=== PATIENT | male | born 1955 | race Caucasian/White ===

== ENCOUNTER 2024-04-04 08:00 | Outpatient (RCR) | payer MEDICARE, OTHER, SELFPAY ==
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
--- NOTE | 2024-04-04 09:00 | BH.COMM ---
Communication Note Communication with Client Communication Note: Met with pt to complete psychosocial, risk assessment, and initial paperwork. Completed [place] Suicide Screening. Low risk. Consulted with Dr. Almanza with plan to admits to [facility] with dx of f31.97
--- NOTE | 2024-04-04 10:15 | BH.SGPN.GN ---
Behaviors/Verbalizations/Mental Status: [] Eye contact is good. Motor activity is appropriate. Appearance is casual. Speech is Appropriate. Mood is depressed/anxious. Affect is congruent. Thoughts are linear and logical. No evidence of psychosis. Client Response/Progress/Benefit: [] Pt did well to participate in activity and was engaged and attentive during psychoeducation and interactive discussion on coping skills, why people use unhealthy coping skills, how to replace unhealthy coping skills, and internal vs external coping skills. Attentive as peers came up with list of negative coping skills including not asking for help, avoidance, isolating, sleeping, shopping, substance use, and several others. Pt reports he will at times use passive aggressiveness as a coping skill. Recognizes this doesn't help the situation. Group discussed the effects of how negative coping skills can impact mental health in a negative way. Benefited from increased understanding of unhealthy coping skills and the need for developing healthy internal and external coping skills. Will continue in IOP to improve daily functioning, increase healthy coping skills, and prevent decompensation.
--- NOTE | 2024-04-04 11:10 | BH.MDN ---
Multi-Disciplinary Note Note 60-min Individual: Time Started:: 11:10 Date: 04/04/24 Purpose of session/treatment goals addressed:: Met with pt to gather hx, symptoms which led to admission, and began to develop treatment plan goals. Eye Contact:: Intense Motor Activity:: Restless Appearance:: Casual Speech:: Pressured, Tangential (hyper-focused on confucianist and sexual topics) and Rapid Mood:: Anxious Affect:: Full Thoughts:: Linear, Racing, Flight of ideas (mild) and Circular Staff Interventions:: rapport building and completed risk assessment / safety planning Client Response:: Pt reports that he was referred to [facility] by his outpatient therapist due to his mental health impacting his functioning (mainly relationships). Pt states his therapist thinks I have Bipolar 2. Pt recently completed an psychiatric evaluation with an outpatient psychiatrist (Dr. Bianchi at [facility]) which pt reports was not helpful. He was just trying to sell me pills. Pt reports previous medication trails which were not effective. Challenging to follow pt due to racing thoughts, tangential thoughts, and being hyper-focused on confucianist and previous sexual encounters. Able to be re-directed. He is able to identify distinct depressive and hypomanic episodes throughout his life. Currently he admits to starting several projects and not finishing them, racing thoughts, restlessness, and erratic moods. Able to gather history and begin to build rapport. His goals for [facility] are to have someone work the problem with me. He however struggles with identifying the problem except to state that his current behaviors are impacting his marriage. I never understand myself. Risks/Concerns:: Denies active suicidal ideations, plan, or intent. No hx of attempts. Progress Toward Goals/Plan:: Limited progress as this was pt's first day in [facility]. Pt is reluctant to start medications due to previous negative encounters. He reports previous trial of two anti-depressants one of which caused depression/drowsiness and the other resulted in excessive sex drive. Referred to [facility] by his outpatient therapist and his for what appears to be hypomania, erratic mood, racing thoughts and recent depressive episode. Pt has been consistently attending traditional outpatient for a year with limited benefit. Along with mental health impacting his functioning and what presents as long-standing untreated hypomanic/depressive episodes the plan is to admits to [facility] to stablize mood, increase healthy coping, and improve functioning. Time Stopped:: 12:30
--- NOTE | 2024-04-04 15:23 | BH.MTP ---
Master Treatment Plan Patient Information Program Physician:: Domonique Almanza Primary Therapist:: Mihir Flores Psychiatric Diagnoses Psychiatric Diagnoses:: 1. Bipolar 2 disorder (possibly currently hypomanic and coming out of depression) 2. PTSD Diagnosis Code(s):: F31.81 Estimated LOS Estimated LOS (in weeks):: 6 Problem/Goal #1 Problem/Goal #1 Stated Goal:: Client will increase mood stability and reduce depression based on self-report and reduction of scores on the ary domain. Description of Barriers: Mental health stigma, refuses medication intervention, absolute thinking, limited insight on symptoms and how they impact relationships. Functional Impact: Hypomania causing Relationship conflict ( recently asked for a divorce), Limited support, and difficulty staying on task and completing projects. Depressive episodes low energy, panic, rumination, and thoughts of . Reports that he has to tell his to put the guns away. Goal Relevant Strengths/Supports: Engaged. Reports motivation and willingness to learn. Objectives Objective #1: Stated Objective: Client will increase self-awareness of Bipolar 2 and Hypomania (i.e. criteria/symptoms, impact on relationship/functioning). Will also identify 2-3 warning signs and triggers to both hypomania and depressive episodes Interventions: Through individual and group work client will identify triggers and warning signs for hypomanic and depressive episodes. Therapist will provide psychoeducation on bipolar disorder and use CBT strategies to increase client?s awareness of how thoughts, feelings, and behaviors impact functioning. Discharge Criteria: Will be able to identify criteria associated with Bipolar 2 and hypomania as well as 2-3 warning signs that he is experiencing a hypomanic or depressive episode. Target Date: 05/16/24 Review Date: 04/25/24 Objective #2: Stated Objective: Client will identify and replace 2-3 negative thinking patterns/mistaken beliefs that reinforce depressive symptoms, self-hate, unhealthy ruminations, and negative self-talk Interventions: Through individual and group counseling will help client identify distorted, negative beliefs about self and replace with more realistic, affirmative messages. Therapist will use CBT to help client increase insight to the connection between thoughts, emotions, and behaviors. Therapist will encourage client to practice thought challenging. Discharge Criteria: Able to identify 2-3 negative thinking patterns and/or mistaken beleifs which impact thoughts, emotions, and actions. Target Date: 05/16/24 Review Date: 04/25/24 Problem/Goal #2 Problem/Goal #2 Stated Goal:: Stabilize anxiety level while increasing ability to function on a daily basis AEB self-report and decreased scores on the anxiety domain. Description of Barriers: Mental health stigma, refuses medication intervention, absolute thinking, limited insight on symptoms and how they impact relationships. Functional Impact: Anxiety, ruminations, and hyper-focus often result in struggles with communicating effectively, anger mgmt, relationships, and panic attacks. Goal Relevant Strengths/Supports: Engaged. Reports motivation and willingness to learn. Objectives Objective #2: Stated Objective: Client will identify 2-3 cognitive distortions that lead to rumination, panic, anger, and ineffective communication. Learn 2-3 ways to manage these thoughts to better manage anxiety as shown by reduced DSM-5 scores for anxiety Interventions: Through individual and group counseling will teach the client calming/relaxation skills (e.g., muscle relaxation, mindful breathing) and provide education on the most common cognitive distortions and teach client the connection between thoughts, emotions, and feelings Discharge Criteria: Able to identify commonly used cognitive distortions and 2-3 ways to reframe challenge these distortions. Target Date: 05/16/24 Review Date: 04/25/24
--- NOTE | 2024-04-06 09:00 | BH.SGPN.GN ---
Behaviors/Verbalizations/Mental Status: [] Eye contact good. Motor activity appropriate. Speech within normal limits. Affect congruent, mood euthymic. Thoughts linear, logical, no signs of hallucinations or delusions. Reviewed client?s symptom tracker, denies SI, plan, or intent as of 04/06/2024. Client Response/Progress/Benefit: [] Client receptive of session, attentive and willing to process with group. Reports mental health win as successfully managing his emotions and not becoming unnecessarily agitated by bad drivers on his way to group this morning. Identified positive self-talk and gratitude practices as aiding in maintaining mood stability. Additional win noted as sleeping well last night despite recently struggling with staying asleep. Current stressor noted as knowing what to do with his time by the mid-afternoon now that he is retired. Discussed trying to get more into reading and other hobbies which have been helpful distractions. Receptive of and appearing to benefit from group support and feedback. Recommended continued IOP tx to further improve mood stability, promote consistent skill application, well as prevent decompensation. Narrative Note: []
--- NOTE | 2024-04-06 10:50 | BH.NA_ITS ---
Physical Data Vital Signs Pulse Rate: 51 Blood Pressure: 136/83 Height/Weight Height: 1.79 m Weight:: 74.389 kg Weight in Pounds: 164.0 lbs Current Medication Compliance Medication Compliance Do you take your medication as prescribed?: Yes Nutritional History Appetite Nutritional Instructions: Describe your appetite:: Good Additional nutritional information:: Client states he has lost about 30 lbs in the last 10 months intentionally. Functional Assessment Sleep Pattern Describe any problems with sleeping: Client states he sleeps about 6 hours per night, and states he easily can fall asleep in the afternoon due to his myotonic muscular dystrophy recessive trait. Sensory/Communication Assess Vision Problems Do you have any vision problems?: Glasses Medical Problems/History Cardiac Conditions Cardiovascular: Hypertension Neurological Conditions Neurological: Headaches Gastrointestinal Conditions Gastrointestinal: Other (See comments) (history of Barretts esophagus, GERD) Musculoskeletal Conditions Musculoskeletal: Other (See comments) (has recessive mytonic muscular dystrophy gene and states he has some small traits but does not have diagnosis of actual disorder) Surgical History Surgical History Have you had any surgeries? If so, list type and date:: Yes (hernia, cataracts and retinal reattachment) Substance Abuse Substance Abuse Please describe substance abuse in the last 30 days:: Client states he used alcohol and marijuana heavily during his teenage and early adult years and states he completely stopped using in 1976. Client has a history of cigarette use but not current, stating he quit in 1979 after smoking 2-3 ppd for about 8 years. Client states he drinks about 2 cups of coffee per day. Mental Status Summary Mental Status Significant Findings/Observations on Appearance and Mood:: Client is alert and oriented x 4. Client is casually groomed. Client is cooperative with assessment. Client makes good eye contact. Client's voice has normal rate and volume, and client talks off subject at times at length. Client has a full affect. Client makes logical associations. Client denies delusions/hallucinations. Client denies SI. Suicide Assessment Suicidal Ideation Are you currently or have you been suicidal in the past?: Yes Suicidal Intentional Rating Scale (SIRS): Suicidal thoughts (past) Physician Notification Past Psychiatric History MH Treatment Hx Past Psychiatric Medications:: Client states he took Stelazine around age 16 a couple of times, took Paxil for 14 months and took Effexor for 20 months several years ago and has not taken medicaiton for mental health at all in about 24 years. Age of first mental health symptoms: Client states he had anxiety as a kid, and took a few doses of Stelazine as a teenager for anxiety. Describe (age, circumstance, etc) any past hospitalizations: 1996 at [facility] after a panic attack. Client reports that he attempted to hang himself at age 4, and at age 17 stepped out infront of a car as a suicide attempt Current providers for mental health treatment (counselor, psychiatrist, renal case manager, etc.): Chad Merino for counseling, saw Dr. Bianchi once at [facility] for psychiatry Fall Risk Assessment Age Age: 60-70 Mental Status Mental Status: Willing & able to ask for assistance when needed Physical Status Physical Status: No problems Impairments Impairments: None Elimination Elimination: Continent AND independent Gait or Balance Gait or Balance: Walks independently Hx of Falls History of falls in the past 6 months: No known history Medications/Substances Others:: Antihypertensives Medications/substances used within the past 24 hours or ordered to administer: 1-2 of the medications/substances listed above Total Score Total Points:: 2 RN Summary of Impressions Impressions Recommendations Impressions: Psychiatric Issues: 1. Bipolar 2 disorder (possibly currently hypomanic and coming out of depression) 2. PTSD Level of Care How do the client's current symptoms and functional deficits support need for this level of care?: Client was referred to IOP by outpatient therapist, client states He thinks I have bipolar disorder. Client states over his life, he feels like he works really hard at something for a long time and then has a period of being depressed. Client states over the last few years since [facility], he has been working at being a homesteader and providing stuff for himself (states he took money out of the bank and has it in different places in case the bank system fails, stashing away food, etc) and states he has been feeling depressed for the last several weeks after working on that for so long. Client states that his behavior is driving everyone around me crazy. Client does report decreased energy at this time. Client denies SI when asked. Client talks at length about his islam and how it has changed his life. Client reports stressors at home since he is retired and my is stuck with me all day without a break. IOP will promote gains and prevent further decompensation while providing social support and skills training.
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
--- NOTE | 2024-04-06 12:28 | BH.DR.ITP ---
Initial Treatment Plan Patient Information Visit Information: ADMISSION DATE: EXPECTED LOS: 4-6 weeks Problems/Symptoms Problem #1:: Mood instability Symptom:: Sadness, mild grandiosity, guilt, passive thoughts of , worthlessness, hopelessness Symptom:: Occasional moods consistent with hypomania Problem #2:: Anxiety Symptom:: Worry, rumination
[2024-04-06 14:26] VITALS: BP 136/83; PULSE 51
--- NOTE | 2024-04-08 09:00 | BH.SGPN.GN ---
Behaviors/Verbalizations/Mental Status: []Eye contact is good. Motor activity is appropriate. Appearance is casual. Speech is Appropriate. Mood is euthymic. Affect is congruent. Thoughts are linear and logical. No evidence of psychosis. Reviewed daily check in sheet and no reports of suicidal ideations or intent. Client Response/Progress/Benefit: []Pt responded well to session, attentive and engaged. Pt reports feeling smooth this morning. Pt identified mental health wins today which included admitting to himself that he has contributed to the problem in his marriage and pt feels that he had good time management yesterday. Pt's stressor this morning is that one of his life-long friends had to make changes to their standing breakfast plans. Pt expressed how this triggered rejection and all or nothing thoughts of wanting to end the friendship. Pt somewhat receptive to per feedback on how to communicate with his friend and challenge his own thoughts. Pt appeared to benefit from reflecting on use of coping skills and connecting with peers. Pt will continue IOP tx to prevent decompensation, improve daily functioning, and increase distress tolerance skills. Narrative Note: []
--- NOTE | 2024-04-08 10:15 | BH.SGPN.GN ---
Behaviors/Verbalizations/Mental Status: [] Eye contact is good. Motor activity is appropriate. Appearance is casual. Speech is Appropriate. Mood is euthymic. Affect is full. Thoughts are linear and logical. No evidence of psychosis. Client Response/Progress/Benefit: [] Pt was engaged and an active participant throughout, providing input and taking notes. Participated throughout interactive discussion on defining anxiety and identifying cognitive and physiological symptoms of anxiety. Group discussed the role of anxiety on isolation, avoidance, and who this emotion impacts their ability to start and complete activities/goals. Pt identified their physical/physiological signs of anxiety (i.e. nausea, increased heart rate, butterflies, and headaches). Pt identified safety behaviors (i,e isolation, cancel plans, and reassurance seeking). Benefited from increased awareness and insight on anxiety and its impact. Will continue in IOP to prevent decompensation, stablize mood, and increase healthy coping/persepctives. Narrative Note: []
--- NOTE | 2024-04-08 11:15 | BH.SGPN.GN ---
Behaviors/Verbalizations/Mental Status: []Pt alert and oriented, casually dressed and groomed. Eye contact good. Motor activity appropriate. Speech within normal limits. Affect congruent, mood euthymic. Thoughts linear, logical, no signs of hallucinations or delusions. Client Response/Progress/Benefit: []Pt was an active participant AEB pt providing input and listening attentively to peers. Attentive during psychoeducation on mindfulness coping skills and their impact on reducing anxiety and improving overall mental health wellness. Group was able to identify self-soothing and mind-based coping skills which included: 5-senses, meditation, deep breathing, TIPP, thought challenging, and progressive muscle relaxation. Pt also participated with peers in practicing mindfulness skills in session including deep breathing and PMR. Pt would like to work on using music to manage anxiety. Appeared to benefit from increasing repertoire of anxiety reduction skills. Pt will continue in IOP tx to increase healthy coping skills, challenge distorted/negative thoughts, and prevent decompensation.
--- NOTE | 2024-04-12 09:05 | BH.SGPN.GN ---
Behaviors/Verbalizations/Mental Status: [] Eye contact is good. Motor activity is appropriate. Appearance is casual. Speech is pressured, rambling at times. Mood is euthymic. Affect is full. Thoughts are linear and logical. No evidence of psychosis. Reviewed daily check in sheet and no reports of suicidal ideations or intent. Client Response/Progress/Benefit: [] Pt was an active participant in group discussions. Provided feedback on short video on Empathy vs Sympathy. Shared with the group increased awareness and empathy regarding recent upsetting event for his . This led to appropriate communication rather than avoidance or dismissal of her concerns. As a result it made things better. Admits that he struggles with effective communication with his which has often led to conflict and ongoing relationship stress. According to pt he thrives on connection with others using examples of previous conversations. Identifies with being an extrovert. Highlighted the importance of improving relationship with his to increase connection. Progress noted. Benefited from group support, encouragement, and feedback. Will continue in IOP to stabilize mood, increase healthy coping, and improve functioning. Narrative Note: []
--- NOTE | 2024-04-12 10:15 | BH.SGPN.GN ---
Behaviors/Verbalizations/Mental Status: []Eye contact is good. Motor activity is appropriate. Appearance is casual. Speech is Appropriate. Mood is content. Affect is congruent. Thoughts are linear and logical. No evidence of psychosis. Client Response/Progress/Benefit: [] Attentive and engaged throughout the group discussions, at times struggling with dominating conversation. Attentive during psychoeducation on the 4 communication styles (Passive, Passive-Aggressive, Aggressive, and Assertive) and the obstacles to effective communication. Attentive during interactive discussion on the benefits of communicating effectively, as well as the benefits and disadvantages to the different communication styles. Reports connecting most with the assertive style, though appears to struggle with insight into his own use of aggressive communication even in the group setting. Shared struggling at times with making assumptions when communicating with his . Benefited from increased understanding of communication styles and how these can impact effective communication. Will continue in IOP to increase interpersonal effectiveness skills, improve mood stability, and prevent decompensation. Narrative Note: []
--- NOTE | 2024-04-12 11:10 | BH.SGPN.GN ---
Behaviors/Verbalizations/Mental Status: []Pt alert and oriented, casually dressed. Eye contact fair. Motor activity appropriate. Speech within normal limits. Affect congruent, mood euthymic. Thoughts linear, logical, no signs of hallucinations or delusions. Client Response/Progress/Benefit: [] Pt responded well to session AEB Pt listening attentively to others and providing input during group discussion on the pay offs and costs of the different communication styles. Pt able to connect how current communication style impacts mental health. Connected with peers? comments about importance of using assertive communication. Pt did well with practicing being assertive in the group activity and worked with group to identify potential skills for improving communication skills. Pt seemed to benefit from increasing awareness of healthy strategies to improve communication. Will continue IOP tx to prevent decompensation, increase consistent use of healthy coping skills, and challenge negative thoughts.
--- NOTE | 2024-04-12 12:10 | BH.MDN_ITS ---
Multi-Disciplinary Note Note 60-min Individual: Time Started:: 12:10 Date: 04/12/24 Purpose of session/treatment goals addressed:: Treatment planning and goal setting. Eye Contact:: Intense Motor Activity:: Appropriate Appearance:: Casual Speech:: Pressured, Rambling and Rapid Mood:: Euthymic Affect:: Full Thoughts:: Linear, Logical and No evidence of hallucinations/delusions noted Staff Interventions:: thought challenging, psychoeducation on: (cognitive distortions; ), rapport building and treatment planning Client Response:: Pt states that IOP treatment is going ok. Reports benefits from groups and discussions on topics related to mental health. When asked about his goals for treatment he became focused on marriage conflicts. States that he is unhappy and its not fun. Brings up several struggles with communication and intimacy which have not resolved despite marriage counseling. He is committed to stay with her mainly for financial and evangelical reasons. He believes that his issues with women are the result of his childhood noting that his parents had an unhealthy relationship which was distant. A great deal of his anxiety, stress, depression, and irritabilty are related to his struggles with communication and connection with others. Risks/Concerns:: Denies active SI, plan, or intent. Progress Toward Goals/Plan:: Limited progress. Pt refused medication suggestions form program psychiatrist. Speech continues to be rapid/pressured and he struggles with rambling (going off topic). Also remains hyper focused on sex which he discussed in detail at the beginning of the session. Often over- engages in group and struggles to listen. Impulsive and can be borderline inappropriate with information discussed, however this has improved with redirection from staff. After speaking with pt it is becoming evident that he has a great deal of cognitive distortions which are impacting his thinking, emotions and behaviors. Significant absolute thinking and overgeneralization. He was responsive to education on cognitive distortions and was given task to review list of distortions and identify ones that he uses the most. Will continue in IOP to stabilize mood, increase healthy coping, and prevent decompensation. Will encourage reconsideration of medication through increased education on Bipolar 2. Time Stopped:: 01:00
--- NOTE | 2024-04-13 09:00 | BH.SGPN.GN ---
Behaviors/Verbalizations/Mental Status: [] Client alert and oriented, casual appearance. Eye contact good. Motor activity appropriate. Speech within normal limits. Affect congruent, mood sad. Thoughts linear, logical, no signs of hallucinations or delusions. Reviewed client's symptom tracker, no risk for suicidal ideation, plan, or intent. Client Response/Progress/Benefit: [] Client responded well to session AEB listening to others and sharing thoughts/feelings. client stated current stressor is watching his 's physical health decline. Client became tearful when talking about watching his 's physical health deteriorated. Client stated mental positive as exercising yesterday even though he did not do anything. Client stated additional mental positive was being frustrated with the car during his commute to IOP today but was able to use breathing skills to bring himself back down so he did not respond in a negative way. Appeared to benefit from support from peers. Will continue IOP tx to continue use of healthy coping skills, challenge distortions, and prevent decompensation. Narrative Note: []
--- NOTE | 2024-04-13 10:10 | BH.SGPN.GN ---
Behaviors/Verbalizations/Mental Status: []Pt alert and oriented, casually dressed and groomed. Eye contact good. Motor activity appropriate. Speech within normal limits. Affect congruent, mood calm. Thoughts linear, logical, no signs of hallucinations or delusions. Client Response/Progress/Benefit: []Pt was attentive during psychoeducation and participated in group activity. Group discussed what contributes to a person?s perspective and how perspective can positively or negatively impact mental health treatment. Pt reflected on their perspective today and how it is impacting them. Pt shared their perspective today is ?hopeful and optimistic? and pt feels this will help him continue to learn while in IOP. Pt appeared to benefit from increasing awareness of different perspectives and how they can affect mental health. Pt will continue IOP tx to promote mood stability, increase self-awareness, and improve daily functioning. Narrative Note: []
--- NOTE | 2024-04-13 11:10 | BH.SGPN.GN ---
Behaviors/Verbalizations/Mental Status: []Pt alert and oriented, casually dressed and groomed. Eye contact good. Motor activity appropriate. Speech within normal limits. Affect congruent, mood content. Thoughts linear, logical, no signs of hallucinations or delusions. Client Response/Progress/Benefit: []Pt was attentive and contributed to group discussion. Pt worked with group to identify strategies that can help with challenging negative perspective. Pt completed strengths exploration worksheet, identifying love of learning, curiosity, and spirituality as personal strengths. Pt able to acknowledge how these strengths are helping pt and can continue to help pt in mental health journey. Pt identified wanting to work on leaning on strength of love of learning to learn more about perspectives he does not understand. Benefited from identifying personal strengths and strategies for enhancing use of identified strengths. Pt will continue IOP tx to maintain mood stability, encourage consistent skill application and prevent decompensation. Narrative Note: []
--- NOTE | 2024-04-14 09:00 | BH.SGPN.GN ---
Behaviors/Verbalizations/Mental Status: [] Pt alert and oriented, neatly dressed and groomed. Eye contact good. Motor activity appropriate. Speech within normal limits. Affect constricted, mood euthymic. Thoughts linear, logical, no signs of hallucinations or delusions. Reviewed pt?s symptom tracker, no risk for suicidal ideation, plan, or intent 04/14/24 Client Response/Progress/Benefit: []Pt responded well to session, attentive and engaged. Pt reports feeling optimistic this morning. Pt shared he was productive last night and he did not have any disputes with his . Pt shared he has noticed he gets tired more often and he wants to sleep when he feels overwhelmed. Pt wondered why this happens and group shared it could be a fight, flight, or freeze response to stress which pt found helpful. Pt appeared to benefit from identifying positives and connecting with peers. Pt will continue IOP tx to prevent decompensation, gain healthy coping skills, and improve daily functioning. Narrative Note: []
--- NOTE | 2024-04-14 10:15 | BH.SGPN.GN ---
Behaviors/Verbalizations/Mental Status: []Client alert and oriented, casually dressed and groomed. Eye contact good. Motor activity appropriate. Speech within normal limits. Affect congruent, mood slight agitation and content. Thoughts linear, logical, no signs of hallucinations or delusions. Client Response/Progress/Benefit: []Pt was an attentive an active participant, AEB taking notes and providing input in group discussion when prompted. Attentive during psychoeducation. Pt engaged during interactive discussion in which the group defined self-care and discussed its benefits. Group discussed barriers to engaging in self-care. Group members together came up with guilt, time, ?people pleasing?, not knowing what to do, and perception that its unproductive as barriers to engage in self care. Pt stated their personal barrier is not enough time/other things are more important. Pt participated in small groups where they worked to identified and challenged common self-care ?myths?. Benefited from increased awareness of self-care, its benefits, and the consequences of not utilizing self-care strategies. Will continue IOP tx to continue to improve functioning, increase interpersonal effectiveness skills, and prevent decompensation. Narrative Note: []
--- NOTE | 2024-04-14 11:15 | BH.SGPN.GN ---
Behaviors/Verbalizations/Mental Status: [] Client alert and oriented, casually dressed and groomed. Eye contact good. Motor activity appropriate. Speech within normal limits. Affect congruent, mood content, agitated. Thoughts linear, logical, no signs of hallucinations or delusions. Client Response/Progress/Benefit: []Client engaged in discussion reviewing different areas of self-care and completing self-assessment of current self care, as well as providing input throughout discussion. Did appear more agitated when asked to assess himself and complete the worksheet as pt appears to prefer dialogue to worksheet activities. Client however completed worksheet identifying current self-care practices and what self-care activities client wants to start using. Client selected emotional self-care to begin practicing more consistently. Client plans to do this by continuing to challenge himself to attend IOP treatment and open up more to individual therapist as well as challenge his perspective. Appeared to benefit from completing the self-care evaluation and gaining insights into current self-care practices, as well as identifying areas in which client would like to improve upon. Client will continue IOP tx to prevent decompensation and increase social awareness and improve mood stability. Narrative Note: []
== END 2024-04-16 23:59 ==
LOC: BHIOP 08:00
PROVIDERS: Referring Provider Psychiatry & Neurology Psychiatry; Visit Provider Psychiatry & Neurology Psychiatry
DX: F31.81 Bipolar II disorder (principal); F43.10 Post-traumatic stress disorder, unspecified
CPT/HCPCS: S9480; 90837; 90853

== ENCOUNTER 2024-04-19 07:10 | Outpatient (RCR) | payer MEDICARE, OTHER, SELFPAY ==
[2024-04-17 00:56] VITALS: BP 136/83; PULSE 51
--- NOTE | 2024-04-19 09:00 | BH.SGPN.GN ---
Behaviors/Verbalizations/Mental Status: [] Eye contact is good. Motor activity is appropriate. Appearance is casual. Speech is Appropriate. Mood is anxious/irritable. Affect is congruent. Thoughts are linear and logical. No evidence of psychosis. Reviewed daily check in sheet and no reports of suicidal ideations or intent. Client Response/Progress/Benefit: [] Pt was an active participant in group discussions. Attentive. Pt reports first ?tranquil? days in several months. He spent time with his brother who was in town for the weekend. First time he has seen his brother in 5 years. Tearful at times. According to pt communication continues to be a struggle for him noting that his called him and ?asshole? out of nowhere. Little insight into what triggered her anger stating he was ?just talking?. He admits to getting angry however awareness that engaging with while she is angry is not beneficial. Utilized healthy coping as he left the room and performed mindfulness skills. According to pt this worked as later apologized. Progress noted as he is utilizing skills.. Benefited from group support, encouragement, and feedback. Will continue in IOP to prevent decompensation, stabilize mood, improve communication, and increase healthy skills. Narrative Note: []
--- NOTE | 2024-04-19 10:15 | BH.SGPN.GN ---
Behaviors/Verbalizations/Mental Status: []Pt alert and oriented, casually dressed and groomed. Eye contact good. Motor activity appropriate. Speech within normal limits. Affect congruent, mood content. Thoughts linear, logical, no signs of hallucinations or delusions. Client Response/Progress/Benefit: []Pt an active participant throughout. Participated during interactive discussion on defining conflict (internal/external) and possible benefits to conflict. Attentive during psychoeducation on conflict styles and engaged during group discussion in which peers identified the benefits and consequences to each conflict style. Pt identified they often struggle with avoiding conflict when it has to do with him as he fears this will reinforce negative thoughts that there is something wrong with me. Benefited from increased awareness of the impact of conflict styles in mental health. Will continue in IOP tx to reinforce healthy coping skills, improve mood stability, and prevent decompensation. Narrative Note: []
--- NOTE | 2024-04-19 11:15 | BH.SGPN.GN ---
Behaviors/Verbalizations/Mental Status: []Eye contact is good. Motor activity is appropriate. Appearance is casual. Speech is tangential. Mood is content. Affect is constricted. Thoughts are linear and logical. No evidence of psychosis. Client Response/Progress/Benefit: [] Pt was engaged in group discussions and activity. Engaged with peers in activity and identifying healthy ways to approach each conflict scenario. Group discussed various conflict resolution skills that can be useful in addressing conflict outside of IOP. Benefited from practicing and learning conflict resolution skills during group activity. Able to identify areas pt wants to work on to improve how pt manages conflict both internally and externally. Expressed wanting to work on expressing his needs more with his as pt feels he avoids and accommodates most with her. Will continue in IOP tx to gain interpersonal effective skills and increase self-awareness. ? Narrative Note: []
--- NOTE | 2024-04-21 09:05 | BH.SGPN.GN ---
Behaviors/Verbalizations/Mental Status: [] Eye contact is fair. Motor activity is appropriate. Appearance is casual. Speech is Appropriate. Mood is depressed. Affect is congruent. Thoughts are linear and logical. No evidence of psychosis. Reviewed daily check in sheet and no reports of suicidal ideations or intent. Client Response/Progress/Benefit: [] Pt was an active participant in group discussions. Attentive. Tearful at times. He discussed his son's recent medical issues which have resulted in son needing a pacemaker. He shared that his son is more than likely going to soon. Elaborated that those with son's illness typically don't live to certain age, which he son is close. While there is no acute concern as son is under care of aerial crop duster pt appears to be preparing himself for the possibility that his son will soon. Despite this as well as other stressors pt reports his mood is calm which is incongruent with his check in. He does believe that his communication with is improving. Benefited from group support, encouragement, and feedback. Will contine in IOP to stabilize mood, increase healthy coping, and to improve functioning. Narrative Note: []
--- NOTE | 2024-04-21 10:00 | BH.SGPN.GN ---
Behaviors/Verbalizations/Mental Status: []Pt alert and oriented, neatly dressed and groomed. Eye contact good. Motor activity appropriate. Speech within normal limits. Affect congruent, mood euthymic. Thoughts linear, logical, no signs of hallucinations or delusions Client Response/Progress/Benefit: [] Pt was an active participate AEB listening attentively to others, participating in group discussions, and taking notes throughout. Participated as the group identified ways we can hurt others or sabotage self by not regulating our emotions. Participated with peers to identified ways emotions impact communication. Pt stated in the past he has used his anger as a way to get what he wants, which he recognizes isn't the healthiest thing to do. Participated during group activity. Pt benefited from session by gaining an increased understanding on the importance of managing emotions to improve daily functioning. Will continue IOP tx to improve distress tolerance, increase awareness, and prevent decompensation.
--- NOTE | 2024-04-21 11:15 | BH.SGPN.GN ---
Behaviors/Verbalizations/Mental Status: []Pt alert and oriented, casually dressed and fairly groomed. Eye contact good. Motor activity appropriate. Speech within normal limits. Affect congruent, mood euthymic. Thoughts linear, logical, no signs of hallucinations or delusions. Client Response/Progress/Benefit: [] Pt engaged in session AEB Pt listening attentively to peers and providing input. Attentive during psychoeducation on 4 zones of regulation. Pt able to identify feelings and behaviors for each zone. Pt identified coping skills one can use to support self in each zone. Identified being in the green zone today and he wants to continue focusing on his marriage and exercise to keep him in this zone. ?Benefited from increased education on zones of regulation or stages of alertness for emotions and healthy coping skills to use for each zone. Will continue IOP tx to promote mood stability, increase interpersonal effectiveness skills, and improve daily functioning. Narrative Note: []
--- NOTE | 2024-04-21 12:10 | BH.MDN_ITS ---
Multi-Disciplinary Note Note 60-min Individual: Time Started:: 12:10 Date: 04/21/24 Purpose of session/treatment goals addressed:: Utilized the session to review current symptoms and progress. Addressed tretment plan goal 1; obj1 and goal2; obj2 Eye Contact:: Good Motor Activity:: Appropriate Appearance:: Casual Speech:: Appropriate Mood:: Anxious and Irritable Affect:: Congruent Thoughts:: Linear, Logical and No evidence of hallucinations/delusions noted Staff Interventions:: thought challenging, psychoeducation on: (Poor communication skills; cognitive distortions, thought log), CBT techniques and rapport building Client Response:: Pt briefly discussed recent stressors surrounding his son. According to pt his son more than likely will need a pacemaker. Long- standing medical complications which are impacting his heart. Pt shared that individuals with his condition rarely live past 45 and his son is close to that each. Tearful at times. We processed this briefly however pt clearly feels uncomfortable discussing this and being vulnerable. Majority of the session was reviewing list of poor communication skills (i.e. lacking empathy, interrupting others, not listening, giving advice, etc). Pt has noted on several occasions his struggles with communicating with and connecting with other. He believes that he often completes a majority of the poor communication skills. Insight how this impacts his connection with others which he craves. Encouraged to be cognizant and practice skills especially actively listening and not providing advice. Therapist provided handout on Bipolar with common symptoms and criteria. Briefly discussed and pt agreed to read. Reviewed previous assignment given at last session. Pt able to identify absolute thinking, jumping to conclusion, and overgeneralizing as main cognitive distortions. Insight on how these can impact his mood, communication, and relationships. Risks/Concerns:: Denies active SI, plan, or intent. No risks or concerns noted. Progress Toward Goals/Plan:: Progress noted per pt report. Skills learned in IOP have improved communication with . Notes decreased arguments and increased time spent together. Insight into difficulty with appropriate communication which has been observed in group settings. Open to addressing this and continuing to improve appropriate communication. Lack on connection, negative self-image, and loneliness appear related to his struggles with communication which are also the result of hypomania/depressive episodes. He remains unwilling to start any medications so focus has been on awareness, insight, and challenging current perspectives. Will continue in IOP to stabilize mood, increase healthy coping, and improve functioning. Time Stopped:: 01:00
--- NOTE | 2024-04-25 09:00 | BH.SGPN.GN ---
Behaviors/Verbalizations/Mental Status: [] Pt alert and oriented, neatly dressed and groomed. Eye contact good. Motor activity appropriate. Speech within normal limits. Affect flat, mood anxious and depressed. Thoughts linear, logical, no signs of hallucinations or delusions. Reviewed pt?s symptom tracker, no risk for suicidal ideation, plan, or intent 04/25/24 Client Response/Progress/Benefit: []Pt responded well to session, attentive and engaged. Pt reports feeling weary this morning as pt is worried about his son's health which triggers anxiety and ruminations. Pt stated he is trying to use positive self-talk and the coping skills he is learning while at IOP. Peers also gave pt ideas on how to cope. Pt appeared to benefit from reflecting on application of coping skills and connecting with peers. Pt will continue IOP tx to prevent decompensation, improve daily functioning, and increase distress tolerance skills. Narrative Note: []
--- NOTE | 2024-04-25 10:15 | BH.SGPN.GN ---
Behaviors/Verbalizations/Mental Status: [] Eye contact is good. Motor activity is appropriate. Appearance is casual. Speech is Appropriate. Mood is content. Affect is congruent. Thoughts are linear and logical. No evidence of psychosis. Client Response/Progress/Benefit: [] Pt receptive of session, actively engaged throughout AEB taking notes, providing input, and contributing in small group discussion. Appeared to connect with group topic of automatic thoughts and cognitive distortions, as well as the impact of thought patterns on mental health, coping behaviors, and relationships. This particular group is very heavy on psychoeducation and pt appeared to connect with distortions and how they can impact functioning. Identified struggling with over generalization and mind reading distortions. Pt appeared to benefit from gaining insight on distorted thinking patterns and how this impacts overall mental health. Will continue IOP to stabilize mood, improve ability to function, and prevent decompensation. Narrative Note: []
--- NOTE | 2024-04-25 11:15 | BH.SGPN.GN ---
Behaviors/Verbalizations/Mental Status: []Pt alert and oriented, casually dressed and groomed. Eye contact good. Motor activity appropriate. Speech within normal limits. Affect congruent, mood euthymic. Thoughts linear, logical, no signs of hallucinations or delusions Client Response/Progress/Benefit: [] Pt was an active participant during group discussion. Pt was placed in a smaller group and participated in combatting example distortions with peers. Pt was engaged in the smaller group, participated in group interactions to brainstorm answers, and appeared to be comprehending cognitive distortions. Pt stated could connect with many of the distortions covered in group. Pt stated he has learned from group today it's important to ask more questions instead of making assumptions. Benefited from gaining further insight and awareness of cognitive distortions as well as practicing ways to reframe and challenge thoughts. Will continue in IOP tx to challenge distortions, improve distress tolerance, and prevent decompensation.
--- NOTE | 2024-04-26 09:05 | BH.SGPN.GN ---
Behaviors/Verbalizations/Mental Status: [] Eye contact is good. Motor activity is appropriate. Appearance is casual. Speech is Appropriate. Mood is depressed. Affect is congruent. Thoughts are linear and logical. No evidence of psychosis. Reviewed daily check in sheet and no reports of suicidal ideations or intent. Client Response/Progress/Benefit: [] Pt was an active participant in group discussions. Attentive. Daily symptom tracker notes no significant distress yet pt is tearful and reports irritability. Tearful at times. Recent grief reactions related to his son?s medical condition has also resulted in pt contemplating the health of his brothers. Since he is the youngest he believes that he is going to have to watch all his brothers before him. He quickly changes the subject to an event last night in which his was critical of him. He was able to utilize mindfulness and self-care to focus on the present rather than ruminating, mind-read, or catastrophize which was beneficial. Reports low energy this morning. Benefited from group support, encouragement, and feedback. Will continue in IOP to prevent decompensation, increase healthy coping, and improved functioning Narrative Note: []
--- NOTE | 2024-04-26 10:10 | BH.SGPN.GN ---
Behaviors/Verbalizations/Mental Status: []Client alert and oriented, casually dressed and groomed. Eye contact good. Motor activity appropriate. Speech within normal limits. Affect constricted, mood anxious. Thoughts linear, logical, no signs of hallucinations or delusions. Client Response/Progress/Benefit: [] Pt responded well to session AEB actively participating throughout group. Pt was attentive throughout group activity discussing famous individuals and how they overcame failure to be successful. Pt helped group identify how fear of failure can impact mental health and relationships. Pt personally identified it leads shame and negative self-talk. participated in experiential activity, working with group members to problem solve. Appeared to benefit from increased knowledge of what causes fear of failure and how it impacts people. Will continue IOP tx to promote use of healthy coping skills and improve interpersonal effectiveness. Narrative Note: []
--- NOTE | 2024-04-26 11:10 | BH.SGPN.GN ---
Behaviors/Verbalizations/Mental Status: [] Client alert and oriented, casually dressed and groomed. Eye contact good. Motor activity appropriate. Speech within normal limits. Affect congruent, mood content. Thoughts linear, logical, no signs of hallucinations or delusions. Client Response/Progress/Benefit: [] Client responded well to session, engaged in the experiential activity and attentive throughout group processing. Client reported fear of failure has kept client from going to college for engineering or theology. Client completed fear of failure worksheet and was able to identify thoughts and behaviors that reinforce personal fear of failure including past failures, physical limitations, and negative thoughts. Client participated in small group discussion regarding strategies to overcome fear of failure. Identified wanting to work on combating fear of failing with writing out a plan, and challenging himself to be persistent. Appeared to benefit from increased knowledge of strategies to combat fear of failure and gaining self-awareness. Client will continue IOP tx to promote mood stability and prevent decompensation. Narrative Note: []
--- NOTE | 2024-04-26 12:10 | BH.MDN_ITS ---
Multi-Disciplinary Note Note 60-min Individual: Time Started:: 12:10 Date: 04/26/24 Purpose of session/treatment goals addressed:: Utilized the session to review current symptoms and progress. Addressed treatment plan goal 1; obj1 and goal2; obj2 Eye Contact:: Intense Motor Activity:: Appropriate Appearance:: Casual Speech:: Appropriate Mood:: Irritable Affect:: Congruent Thoughts:: Linear, Logical and No evidence of hallucinations/delusions noted Staff Interventions:: thought challenging, psychoeducation on: (communication skills, cognitive distortions. ), CBT techniques and taught coping skills Client Response:: Pt briefly discussed grief reactions related to his son's recent medical decompensation. According to pt the lifespan for his son's immune disorder is 45-50 and his son is currently 42. He wants to spend more time with him this fall and has plans to visit him in his care facility. According to pt his son has accepted his challenges and often states when it happens it happens. Pt reports increase self-awareness regarding his communication skills, however there continues to be conflict with his . According to pt when conflict arises he does not ask for clarification regarding reasons. This leads to resentment and mind reading which further impacts relationship. This therapist attempted to challenge this strategy through examples however limited response. Improvement noted during interactions with peers in IOP. Risks/Concerns:: Denies active suicidal ideations, plan, or intent. Progress Toward Goals/Plan:: Improved insight and self-reflection regarding communication skills, cognitive distortions, and thoughts. Noticed improvement in IOP group settings with peers. He read through Bipolar 2 education handout and discussion was had. He is able to identify certain symptoms and criteria that pertain to him. Discussion was had on how awareness and education can help. He continues to be dismissive of medications. It has been challenging to note progress in sessions as pt oftentimes contradicts himself. He will break from mistaken beliefs and cognitive distortions for moments and then revert right back. He will puneet no distress on his daily symptom tracker then report grief reactions, be tearful, and or remark on significant relationship conflicts. According to outcomes measurement pt has shown a 44% reduction in symptoms since admission. He remains hesitant to re- engage with his outpatient therapist as well. He has been in marriage counseling as well as individual counseling for a number of years with limited benefit or lasting change. Will continue in IOP. Time Stopped:: 13:00
--- NOTE | 2024-04-27 14:00 | BH.MTP_ITS ---
Treatment Plan Review Demographics Date of Admission:: 04/04/24 Date of Treatment Plan Review:: 04/27/24 Admitting Diagnoses:: Bipolar 2 disorder (possibly currently hypomanic and coming out of depression) PTSD Current Diagnoses:: Bipolar 2 disorder (possibly currently hypomanic and coming out of depression) PTSD Patient Status Patient's Response to Treatment:: Pt has shown consistent attendance and engagement in IOP. Entered IOP during hypomanic episode with hyper-focus on sex and adventist which impacted relationships with peers and his overall ability to communicate effectively. Mood has stabilized in the past week and he has been utilizing communication and CBT skills to improve relationships with as well as peers in IOP. Status of Current Problems and Symptoms: According to outcome measurements pt has shown an overall 44% reduction in symptoms since admission. Pt's score on the ary domain decreased 100% (from occurring several days to none), the depression domain decreased by 50%, and the anxiety scores had no change. Outcomes also show an improvement in sleep and memory as well. It appears that pt entered IOP at the end of a depressive episode and beginning of hypomanic episode which may have led decreased perceived struggles, stressors, and overall minimization of symptoms. At this point it appears as if his hypomania is stabilizing as he is not as focused on adventist and sex as he was during his first week. Also reports improved sleep and decreased urge to start new projects. He has increased his knowledge on Bipolar 2, obtained support, and improved communication with . Pt has also benefited from education on cognitive distortions and how these impact his thoughts, emotions, behaviors, and relationships. Brief discussion was had with pt prior to treatment review meeting about discharge next week as he no longer meets criteria for IOP level of care ( daily symptom tracker and self-reports indicate minimal symptoms) and he is agreeable. Progress Problem #1: Problem Name:: Mood Instablility Status of Goals:: Pt's score on the ary domain decreased 100% (from occurring several days to none) and scores on the depression domain decreased by 50%. Obj1- Pt read and discussed criteria, symptoms, and impact of Bipolar 2 handout and discussed with therapist. He did related to most of the handout and admitted that poor sleep and starting several projects could be warning signs of hypomania. Obj2- Pt is struggling with identifying and challenging mistaken beliefs regarding himself, his marriage, women, his mental health, etc which impact progress. Has increased awareness of mistaken beliefs about effective c ommunication and made changes. Team Recommendations:: Pt's scores on daily symptom tracker and DSM are noting minimal distress. Unclear if he is minimizing or hypomanic. Will speak with pt next week regarding progress and goals for IOP. Plan to discuss discharge as he is reporting minimal distress, no desire to start medications, and struggles to identify mental health struggles aside from communication (possibly due to mild hypomania). Problem #2: Problem Name:: Anxiety Status of Goals:: Outcomes scores show no change of scores on the anxiety domain since admission. Obj 1- Pt has identified 3 cognitive distortions, started a thought log to identify thoughts and cognitive distortions, and reports increased self- awareness of cognitive distortions. Team Recommendations:: Pt's scores on daily symptom tracker and DSM are noting minimal distress. Unclear if he is minimizing or hypomanic. Will speak with pt next week regarding progress and goals for IOP. Plan to discuss discharge as he is reporting minimal distress, no desire to start medications, and struggles to identify mental health struggles aside from communication (possibly due to mild hypomania).
--- NOTE | 2024-05-03 09:05 | BH.SGPN.GN ---
Behaviors/Verbalizations/Mental Status: [] Pt alert and oriented, neatly dressed and groomed. Eye contact good. Motor activity appropriate. Speech tangential. Affect congruent, mood calm.. Thoughts linear, logical, no signs of hallucinations or delusions. Reviewed pt?s symptom tracker, no risk for suicidal ideation, plan, or intent 05/03/24 Client Response/Progress/Benefit: []t responded well to session, attentive and engaged. Pt shared feeling calm this morning. Pt shared belief he is gaining awareness and that his his becoming more receptive to pt's progress. Pt's 's health is also his stressor today, sharing that because she cannot do things around the house as much pt feels sad for her and pt feels he has to do more mind-reading. Peers connected with pt and shared that mind-reading tends to lead to negative outcomes. Pt appeared to benefit from reflecting on gains and connecting with peers. Pt will continue IOP tx to promote mood stability, increase self-awareness, and reduce negative thinking patterns. Narrative Note: []
--- NOTE | 2024-05-03 10:10 | BH.SGPN.GN ---
Behaviors/Verbalizations/Mental Status: [] Eye contact is good. Motor activity is appropriate. Appearance is casual. Speech is Appropriate. Mood is content. Affect is constricted. Thoughts are linear and logical. No evidence of psychosis. Client Response/Progress/Benefit: [] Pt receptive to session AEB contributing to group discussion, as well as listening attentively to others, and taking notes. Worked with group to brainstorm the positive and negative aspects of stress on physical and mental health as well as the impact of distress on performance, relationships, and mental health. Pt shared their top stressors to be: difficulty accepting age, political environment, and marital relationships. Shared when feeling overwhelmed with stress pt tends to lash out at friends and self. Benefited from increased awareness of positive and negative stress as well as how stress impact individuals. Will continue in IOP to challenge negative thoughts, increase healthy coping, and prevent decompensation.
--- NOTE | 2024-05-03 11:15 | BH.SGPN.GN ---
Behaviors/Verbalizations/Mental Status: [] Pt alert and oriented, casually dressed and groomed. Eye contact good. Motor activity appropriate. Speech within normal limits. Affect congruent, mood content. Thoughts linear, logical, no signs of hallucinations or delusions. Client Response/Progress/Benefit: [] Pt was an attentive and active participant in group discussions and experiential activity, doing well to regulate their emotions throughout the activity and work with peers. Attentive during psychoeducation on the 4 A's (Avoid, adapt, alter, accept) of coping with stress. Shared that they would benefit most from accepting he is aging and altering his perspective on this. Was able to identify the connection between the experiential activity and utilization of stress management skills. Benefited from increased awareness of stress management strategies. Pt will continue IOP tx to prevent decompensation and improve daily functioning. Narrative Note: []
--- NOTE | 2024-05-04 09:00 | BH.SGPN.GN ---
Behaviors/Verbalizations/Mental Status: [] Eye contact is good. Motor activity is appropriate. Appearance is casual. Speech is Appropriate. Mood is quiet, dysthymic. Affect is congruent. Thoughts are linear and logical. No evidence of psychosis. Reviewed daily check in sheet and no reports of suicidal ideations or intent. Client Response/Progress/Benefit: [] Pt participated at times during the group discussion. Attentive. Daily symptom tracker notes 0/5 for depression and 0/5 for anxiety. Able to identify mental health wins which include insight that he is coming off of a hypomanic state and has therefore been using several skills to manage his dysthymia. Identified keeping on a regular routine, use of opposite action, and spirituality are most effective for him. Shared he has avoided worsening sx as a result of implementing these skills. Current stressor noted as the information he is consuming when watching or listening to daily news sources. Shared trying to be more intentional about what he consumes and filter out unhelpful material, but is not always able to do so. Progress noted based on active implementation of coping skills. Benefited from group support, encouragement, and feedback. Will continue in IOP to prevent decompensation, stabilize mood, and continue to improve interpersonal effectiveness skills. Narrative Note: []
--- NOTE | 2024-05-04 10:10 | BH.SGPN.GN ---
Behaviors/Verbalizations/Mental Status: [] Client alert and oriented, casually dressed and groomed. Eye contact good. Motor activity appropriate. Speech within normal limits. Affect congruent, mood euthymic. Thoughts linear, logical, no signs of hallucinations or delusion Client Response/Progress/Benefit: [] Client was an active participant AEB contributing to discussion, taking notes, and engaging in group activity. Connected with the topic of pitfalls and listened to group discussion on barriers that prevent from choosing a healthier path to mental wellness. Group worked together to identify examples of personal pitfalls which included; isolation, avoidance, making excuses, denial, distortions, and unhealthy coping. Client benefited from group as client learned to better identify potential barriers to improving mental health symptoms. Client will continue IOP tx to prevent decompensation, gain healthy support, and improve daily functioning. Narrative Note: []
--- NOTE | 2024-05-04 11:30 | BH.MDN_ITS ---
Multi-Disciplinary Note Note 30-min Individual: Time Started:: 11:30 Date: 05/04/24 Purpose of session/treatment goals addressed:: Utilized the session to review treatment goals progress and discuss discharge/aftercare. Eye Contact:: Fair Motor Activity:: Appropriate Appearance:: Casual Speech:: Appropriate Mood:: Irritable Affect:: Congruent Thoughts:: Linear, Logical and No evidence of hallucinations/delusions noted Staff Interventions:: thought challenging, CBT techniques and discharge planning Client Response:: Presents today focused almost entirely on communication with . Increased awareness since starting [facility] level of care stating I need to listen more. Also believes that he needs to engage more in the conversations and her concerns rather than ignoring or avoiding conflict. He discussed his plan of action or strategies to improve communication. This has been his primary focus throughout IOP as he believes that poor communication and relationship conflicts are primary trigger to negative thoughts, depression, anxiety, stress, and overall mental health struggles. I have to communicate my thoughts. He remains hopeful that their relationship can improve. According to pt psychoeducation on cognitive distortions, poor communication skills, communication types, bipolar 2, as well as other topics has improved his overall insight which has translated to areas of his life. He is dismissive of coping skills stating instead that his spirituality is the only coping skills to manage distress. Gave examples of using spirituality to cope. Risks/Concerns:: No risk of concerns noted. No suicidal ideations as of 05/04/24 Progress Toward Goals/Plan:: Pt continues to indicate no distress on daily symptom tracker for the past several weeks. Consistent and engaged in group, however at times struggles with communication appropriately with peers. Can be dismissive of secular treatment and coping skills due to strong jewish beliefs. Pt's perspective is that conflict and poor communication are primary causes of his mental health struggles which we have addressed during individual counseling. No significant anxiety, depression, and mental health distress noted on daily symptom tracker for several weeks. Outcomes indicate 44% reduction in symptoms. He declines medication recommendation from program psychiatrist. At this point he no longer meets criteria for IOP level of care. It's unclear if he is minimizing or remains slightly hypomanic, however at this point no significant issues with functioning which warrant continued treatment. Pt and treatment team agree with plan to discharge tomorrow. He will not commit to following up with counseling. Pt reports several previous attempts at individual and marriage counseling with limited benefit. Strongly encouraged him to follow up. He agreed to sign EUGENIA for his therapist (has declined since admission) and will reach out to discuss case/discharge further with his therapist
--- NOTE | 2024-05-05 09:05 | BH.SGPN.GN ---
Behaviors/Verbalizations/Mental Status: [] Eye contact good. Motor activity appropriate. Speech within normal limits. Affect congruent, mood content. Thoughts linear, logical, no signs of hallucinations or delusions. Reviewed client?s symptom tracker, pt denies SI,?plan, or intent as of 05/05/2024. Client Response/Progress/Benefit: [] Client receptive of session, attentive and willing to process with group. ?Identified mental health ?win as doing well to advocate for his physical health needs and reach out to [facility] regarding recent health concerns. Additional win noted as challenging himself to slow down yesterday and enjoy doing calming activities. Stressor identified as a recent disagreement with his ; however, pt reports using skills to managing his emotions and prevent further conflict. Receptive of and appearing to benefit from group support. Recommended continued outpatient tx given IOP d/c today to maintain mood stability, promote consistent skill application, well as prevent decompensation. Narrative Note: []
--- NOTE | 2024-05-05 10:10 | BH.SGPN.GN ---
Behaviors/Verbalizations/Mental Status: [] Eye contact is fair. Motor activity is appropriate. Appearance is casual. Speech is Appropriate. Mood is dysthymic. Affect is constricted. Thoughts are linear and logical. No evidence of psychosis. Client Response/Progress/Benefit: [] Pt engaged participant AEB listening to others, engaging in activity, and providing feedback at times. Attentive during psychoeducation and provided insight into obstacles that impede mental wellness. Pt chose to not share with group current mental health reality and desired mental health reality. Did appear attentive to others that shared. Identified barriers to desired reality include: negative thoughts, poor communication, and distortions. Benefited from taking look at current mental health state and obstacles for progress. Pt to continue IOP tx to challenge distorted thoughts, improve healthy coping, and prevent decompensation.
--- NOTE | 2024-05-05 11:00 | BH.MDN ---
Multi-Disciplinary Note Note 60-min Individual: Time Started:: 11:00 Date: 05/05/24 Purpose of session/treatment goals addressed:: Reviewed outcomes. Reviewed treatment plan goals. Aftercare planning. Eye Contact:: Good Motor Activity:: Appropriate Appearance:: Casual Speech:: Appropriate Mood:: Irritable Affect:: Congruent Thoughts:: Linear, Logical and No evidence of hallucinations/delusions noted Staff Interventions:: discharge planning and reviewed DSM-5 Client Response:: Pt presents today slightly irritable which he reports is due to continued conflict with his . Argument this AM which has impacted his mood. As mentioned previously long-standing marriage conflict since 2007. Pt and have participated in marriage counseling since 2007 with 3 different therapists with no benefit. Pt describes ongoing challenges due to a myriad of reasons just doesn't work with two type A's. Pt vented frustrations for majority of the session which revolve around lack of intimacy, her anger outbursts, and his inability to pursue divorce due to his anabaptist vows. Malcolm tells me I must love and care for her. It has been challenging to determine if pt is highly spiritual/anabaptist or if his hyper-focus on uatsdin is related to hypomania. It would seem that his anabaptist convictions are constant throughout his life however may intensify during hypomanic episodes. Redirected venting to focus on aspects of himself and his life he could control such has how he reacts to , his daily routine, purpose, meaning, etc. Also discussed radical acceptance in the context of his decision to remain in the marriage. Risks/Concerns:: No risks or concerns noted. As of 05/06/24 denies active suicidal ideations, plan, or intent. Progress Toward Goals/Plan:: Pt continues to indicate no distress on daily symptom tracker for the past several weeks. Outcomes measurements indicate 66% reduction in mental health symptoms since admission to [facility]. Outcomes also indicate a reduction in the anxiety, manic/hypomanic, and depression symptoms. Reviewed treatment plan goals and objectives. Pt has reported increased awareness and education on Bipolar 2. More familiar with criteria and agrees that that the symptoms do describe him to a degree, however remains reluctant to pursue medications to stabilize mood. Also reports increased awareness of mistaken beliefs about himself and others however struggles with consistently applying skills to challenge these beliefs. Increased awareness of cognitive distortions and poor communication skills. These topics have had significant impact on him. Primary issues related to marriage conflict which would be more appropriately addressed in individual and marriage counseling. Was encouraged to follow-up with individual counseling at [facility] with Chad Merino to continue to work on communication skills and mood management. Pt has been reluctant to follow up with counseling , however today agreed and signed an EUGENIA. Pt has declined medication recommendations from program psychiatrist for Bipolar 2 disorder which he may reconsider in the future to more effectively manage hypomanic and depressive episodes which could benefit relationships. No longer meets criteria for IOP level of care. Will be discharged today., Time Stopped:: 12:08
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
== END 2024-05-05 12:32 | disposition home or self-care (01) ==
LOC: BHIOP 07:10
PROVIDERS: Referring Provider Psychiatry & Neurology Psychiatry; Visit Provider Psychiatry & Neurology Psychiatry
DX: F31.81 Bipolar II disorder (principal); F43.10 Post-traumatic stress disorder, unspecified
CPT/HCPCS: S9480; 90832; 90837; 90853